=== PATIENT | male | born 1950 | race African-American/Black ===

== ENCOUNTER 2017-01-23 12:44 | Emergency (ER) | payer MEDICARE ==
[~2017-01-23] VITALS: Ht 185.4 cm; Wt 98.0 kg
[~2017-01-23 12:44] MED LIST: HYDR-3580 PO; MELO7.5 PO; VIAG25TA PO
[2017-01-23 12:46] VITALS: BP 140/79; PULSE 105; RESP 12; TEMP 98.4; O2SAT 98
--- NOTE | 2017-01-23 12:59 | PD ---
Physical Exam Date Seen by Provider: Jan 23, 2017 Time Seen by Provider: 12:58 Narrative 66 YOBM C/O CHRONIC R KNEE PAIN NO INJURY VITALS REVIEWED WAITING FOR BED PLACEMENT Data Data Last Documented VS Vital Signs Date Time Temp Pulse Resp B/P Pulse Ox O2 Delivery O2 Flow Rate FiO2 01/23/17 12:46 98.4 105 12 140/79 98 MDM Medical Record Reviewed: Yes Supervised Visit with LEX: Yes Villa Chiu Jan 23, 2017 12:59
[2017-01-23] MEDS ORDERED: OMEP20TA PO (13:32)
[2017-01-23] MEDS ORDERED: MOBI7.5T PO (13:32)
[2017-01-23] MEDS ORDERED: NAPR500T PO (13:48)
[2017-01-23] MEDS ORDERED: PRED-503 PO (13:48)
[2017-01-23] MEDS ORDERED: WHEEMIS3 (13:49)
[2017-01-23] MEDS ORDERED: MISC-274 (13:50)
--- NOTE | 2017-01-23 13:50 | PD ---
HPI Chief Complaint: Injury Time Seen by Provider: 13:46 Travel History International Travel<30 days: No Contact w/Intl Traveler<30days: No Traveled to known affect area: No History of Present Illness HPI 66-year-old male presents emergency Department with complaint of right knee pain. Has history of chronic right knee pain and says he needs a total knee replacement. Pain is exacerbated on Sunday. He denies injury or strain. Dr. Vasquez is his orthopedic surgeon and he has been trying to set up surgery for the last year. Denies paresthesias, loss of sensation, decreased range of motion, decreased strength to the affected extremity. These came for support with ambulation. Pain is worse with ambulation, bending the knee. Has tried taking tramadol with no relief of pain. Denies fever, chills, nausea, vomiting. Dr. Fernandez is primary care provider. No known allergies. Denies significant past medical history. No other modifying factors or associated signs and symptoms. PFSH Social History Tobacco Use: No Allergies-Medications (Allergen,Severity, Reaction): Coded Allergies: No Known Allergies (Unverified , 01/23/17) Reported Meds & Prescriptions Reported Meds & Active Scripts Active Folding Walker/5" Wheels (Device) 1 Mis Mis 1 Ea .ROUTE DIRECTED Wheelchair (Device) 1 Mis Mis 1 Ea .ROUTE DIRECTED Naproxen 500 Mg Tab 500 Mg PO BID 7 Days Deltasone (Prednisone) 20 Mg Tab 40 Mg PO DAILY 5 Days Reported Omeprazole 20 Mg Tab 20 Mg PO DAILY Mobic (Meloxicam) 7.5 Mg Tab 7.5 Mg PO DAILY PRN Review of Systems Except as stated in HPI: all other systems reviewed are Neg Physical Exam Narrative GENERAL: Well-nourished, well-developed male patient, in no acute distress; afebrile, nontoxic-appearing SKIN: Warm and dry. HEAD: Atraumatic. Normocephalic. EYES: Pupils equal and round. No scleral icterus. No injection or drainage. ENT: Mucosa pink and moist. Airway patent. NECK: Trachea midline. CARDIOVASCULAR: Regular rate. RESPIRATORY: No accessory muscle use. GASTROINTESTINAL: Flat. MUSCULOSKELETAL: Right knee is nonedematous, nonerythematous, and without ecchymosis; with full range of motion to flexion to 90; joint is stable with negative drawer test; no tenderness elicited on palpation to the anterior, medial, lateral aspect. Right lower extremity is supple and non-tense with 2+ pedal pulses and sensory intact and without erythema or edema. No obvious deformity. NEUROLOGICAL: Awake and alert. Oriented 3. No obvious cranial nerve deficits. Motor grossly within normal limits. Normal speech. PSYCHIATRIC: Appropriate mood and affect; insight and judgment normal. Data Data Last Documented VS Vital Signs Date Time Temp Pulse Resp B/P Pulse Ox O2 Delivery O2 Flow Rate FiO2 01/23/17 12:46 98.4 105 12 140/79 98 Orders Crutches (01/23/17 13:46) MDM Medical Decision Making Medical Screen Exam Complete: Yes Emergency Medical Condition: Yes Medical Record Reviewed: Yes Differential Diagnosis Arthritis, bursitis, knee pain Narrative Course 66-year-old male with chronic knee pain with acute exacerbation since Sunday. Denies injury, fall, strain. Right lower extremity supple and nontender 2+ pedal pulses and sensory intact without erythema or edema. Heart rate recheck on physical exam at approximately 90 bpm. Patient says he sees Dr. Vasquez and is supposed to be having a right total knee replacement. He has history of left total knee replacement. I do not suspect fracture, dislocation and feel imaging is not necessary at this time. I did offer to do an x-ray and the patient declined at this time. The patient has a cane for support. He is requesting one crutch for support. Crutches provided for support. Naproxen, Deltasone, a wheelchair, and walker prescribed for home. Instructed patient to follow up with Dr. Vasquez. Patient verbalizes understanding and agreement with treatment plan. Patient is medically cleared and stable for discharge. Discussed reasons to return to the emergency department. Instructed patient to follow up with primary care provider. Patient agrees with treatment plan. The patients vital signs are stable and the patient is stable for outpatient follow- up and treatment. Patient discharged home, stable and in no acute distress. Diagnosis Primary Impression: Right knee pain Qualified Code: M25.561 - Right knee pain, unspecified chronicity Referrals: Orthopaedic Surgeon Primary Care Physician Patient Instructions: Crutch Instructions (ED), General Instructions, Knee Pain (ED) Additional Instructions: Tylenol or ibuprofen as needed and as directed to reduce pain and inflammation Rest, ice, compress, and elevate extremity to decrease pain and inflammation Knee Brace for support Crutches, walker, cane, wheelchair for support Avoid aggravating activity; increase activity as tolerated Follow-up with primary care provider Return to the emergency department immediately with worsening symptoms Med/Other Pt SpecificInfo: Prescription(s) given Scripts Folding Walker/5" Wheels 1 Mis Mis #1 Ea .route As Directed Prov:Xochitl Stewart 01/23/17 Wheelchair 1 Mis Mis #1 EA .ROUTE DIRECTED Ref 0 Prov:Xochitl Stewart 01/23/17 Naproxen 500 Mg [id number] Mg PO BID 7 Days Ref 0 Prov:Xochitl Stewart 01/23/17 Prednisone (Deltasone)20 Mg Tab40 Mg PO DAILY 5 Days Ref 0 Prov:Xochitl Stewart 01/23/17 Disposition: 01 DISCHARGE HOME Condition: Stable Xochitl Stewart Jan 23, 2017 13:50
== END 2017-01-23 14:10 | disposition home or self-care (01) ==
LOC: NETRI 12:44
DX: M25.561 Pain in right knee (principal)
CPT/HCPCS: 99283; E0113; L1830

== ENCOUNTER 2017-06-24 07:41 | Observation (INO) | payer MEDICARE ==
[~2017-06-24 07:41] MED LIST changes: -HYDR-3580 PO; -MELO7.5 PO; +MISC-274; +MOBI7.5T PO; +NAPR500T PO; +OMEP20TA PO; +PRED-503 PO; -VIAG25TA PO; +WHEEMIS3
[2017-06-24 07:44] VITALS: BP 171/97; PULSE 98; RESP 16; TEMP 98.8; O2SAT 100
[2017-06-24 07:53] VITALS: BP 133/77; PULSE 92; O2SAT 100
[2017-06-24] MEDS ORDERED: PIPERACIL-TAZO 4.5 GM PREMIX 100 ML IV STA (07:59)
[2017-06-24] MEDS ORDERED: VANCOMYCIN INJ 1,000 MG in SODIUM CHLOR 0.9% 250 ML INJ 250 ML IV STA (07:59)
[2017-06-24 08:10] VITALS: PULSE 94; O2SAT 99
--- NOTE | 2017-06-24 08:41 | PD ---
HPI Chief Complaint: Skin Problem Time Seen by Provider: 07:54 Travel History International Travel<30 days: No Contact w/Intl Traveler<30days: No Traveled to known affect area: No History of Present Illness HPI [facility] WOUND GETTING WORSE, HE HAS NOTED ALSO LLE SWELLING WORSENING OVER PAST 2 WEEKS WELL, SOME DRAINAGE FROM WOUND PFSH Past Medical History Medical History: Denies Significant Hx Past Surgical History Joint Replacement: Yes (lt total knee) Social History Alcohol Use: Yes (beer occu) Tobacco Use: No (quit 7 yrs ago) Allergies-Medications (Allergen,Severity, Reaction): Coded Allergies: No Known Allergies (Unverified , 01/23/17) Reported Meds & Prescriptions Reported Meds & Active Scripts Active Folding Walker/5" Wheels (Device) 1 Mis Mis 1 Ea .ROUTE DIRECTED Wheelchair (Device) 1 Mis Mis 1 Ea .ROUTE DIRECTED Reported Omeprazole 20 Mg Tab 20 Mg PO DAILY Review of Systems Except as stated in HPI: all other systems reviewed are Neg Skin: Positive Lesions Physical Exam Narrative GENERAL: SKIN: Warm and dry. HEAD: Atraumatic. Normocephalic. EYES: Pupils equal and round. No scleral icterus. No injection or drainage. ENT: No nasal bleeding or discharge. Mucous membranes pink and moist. NECK: Trachea midline. No JVD. CARDIOVASCULAR: Regular rate and rhythm. RESPIRATORY: No accessory muscle use. Clear to auscultation. Breath sounds equal bilaterally. GASTROINTESTINAL: Abdomen soft, non-tender, nondistended. Hepatic and splenic margins not palpable. MUSCULOSKELETAL: Extremities without clubbing, cyanosis, or edema. No obvious deformities. ....LEFT LE EDEMA 2+ NOT PRESENT ON RLE, LLE ALSO HAS AN 8CM PRESSURE ULCER TYPE OF WOUND W/O DRAINAGE, WARM TO TOUCH, NEUROLOGICAL: Awake and alert. No obvious cranial nerve deficits. Motor grossly within normal limits. Five out of 5 muscle strength in the arms and legs. Normal speech. PSYCHIATRIC: Appropriate mood and affect; insight and judgment normal. Data Data Last Documented VS Vital Signs Date Time Temp Pulse Resp B/P (MAP) Pulse Ox O2 Delivery O2 Flow Rate FiO2 06/24/17 09:37 18 06/24/17 08:10 94 99 Room Air 06/24/17 07:44 98.8 Orders Orders Complete Blood Count With Diff (06/24/17 07:59) Comprehensive Metabolic Panel (06/24/17 07:59) Blood Culture (06/24/17 07:59) Lipase (06/24/17 07:59) Wound Culture And Gram Stain (06/24/17 07:59) Iv Access Insert/Monitor (06/24/17 07:59) Ecg Monitoring (06/24/17 07:59) Oximetry (06/24/17 07:59) Us Leg Venous Doppler (06/24/17 07:59) Piperacil-Tazo 4.5 Gm Premix (Zosyn 4.5 (06/24/17 07:59) Vancomycin Inj (Vancomycin Inj) (06/24/17 07:59) Morphine Inj (Morphine Inj) (06/24/17 09:15) Admit Order (Ed Use Only) (06/24/17 12:00) Labs Laboratory Tests Test 06/24/17 08:05 White Blood Count 5.8 TH/MM3 Red Blood Count 5.31 MIL/MM3 Hemoglobin 13.8 GM/DL Hematocrit 41.1 % Mean Corpuscular Volume 77.4 FL Mean Corpuscular Hemoglobin 26.1 PG Mean Corpuscular Hemoglobin Concent 33.6 % Red Cell Distribution Width 14.7 % Platelet Count 247 TH/MM3 Mean Platelet Volume 8.3 FL Neutrophils (%) (Auto) 53.1 % Lymphocytes (%) (Auto) 29.9 % Monocytes (%) (Auto) 13.1 % Eosinophils (%) (Auto) 2.6 % Basophils (%) (Auto) 1.3 % Neutrophils # (Auto) 3.1 TH/MM3 Lymphocytes # (Auto) 1.7 TH/MM3 Monocytes # (Auto) 0.8 TH/MM3 Eosinophils # (Auto) 0.1 TH/MM3 Basophils # (Auto) 0.1 TH/MM3 CBC Comment DIFF FINAL Differential Comment Blood Urea Nitrogen 13 MG/DL Creatinine 1.43 MG/DL Random Glucose 100 MG/DL Total Protein 8.1 GM/DL Albumin 3.6 GM/DL Calcium Level 9.1 MG/DL Alkaline Phosphatase 87 U/L Aspartate Amino Transf (AST/SGOT) 18 U/L Alanine Aminotransferase (ALT/SGPT) 24 U/L Total Bilirubin 0.4 MG/DL Sodium Level 141 MEQ/L Potassium Level 3.7 MEQ/L Chloride Level 104 MEQ/L Carbon Dioxide Level 28.0 MEQ/L Anion Gap 9 MEQ/L Estimat Glomerular Filtration Rate 60 ML/MIN Lipase 164 U/L MDM Medical Decision Making Medical Screen Exam Complete: Yes Emergency Medical Condition: Yes Medical Record Reviewed: Yes Differential Diagnosis CELLULITIS V DVT V PERIPHERAL EDEMA UNILATERAL V BAKERS CYST Narrative Course ULTRS DID NOT REVEAL DVT, LEG FINDINGS TROUBLESOME FOR CELLULITIS, THIS WAS EXPLAINED TO PATIENT IN DETAIL, INCLUDING RISK OF OSTEOMYELITIS WELL UNTREATED CELLULITIS WHICH CAN LEAD TO AMPUTATION. PATIENT UNDERSTOOD AND ORIGINALLY AGREED TO ADMISSION FOR OBS STATUS. [facility] CALLED TO ADMIT Diagnosis Primary Impression: LLE CELLULITIS Admitting Information Admitting Physician Requests: Observation Smith Cardenas MD Jun 24, 2017 08:41
[2017-06-24 08:45] LABS: AUTOMATED NEUTROPHIL # 3.1 TH/MM3 (1.8-7.7); BASOPHIL # 0.1 TH/MM3 (0-0.2); BASOPHIL % 1.3 % (0.0-2.0); EOSINOPHIL # 0.1 TH/MM3 (0-0.4); EOSINOPHIL % 2.6 % (0.0-4.0); HEMATOCRIT 41.1 % (39.0-51.0); HEMO FLAGS DIFF FINAL; LYMPH % 29.9 % (9.0-44.0); LYMPHOCYTE # 1.7 TH/MM3 (1.0-4.8); MEAN CELL VOLUME 77.4 FL (80.0-100.0); MEAN CORPUSCULAR HEMOGLOBIN 26.1 PG (27.0-34.0); MEAN CORPUSCULAR HGB CONC 33.6 % (32.0-36.0); MONO % 13.1 % (0.0-8.0); NEUT % 53.1 % (16.0-70.0); PLATELET COUNT 247 TH/MM3 (150-450); RED BLOOD COUNT 5.31 MIL/MM3 (4.50-5.90); RED CELL DISTRIBUTION WIDTH 14.7 % (11.6-17.2); WHITE BLOOD COUNT 5.8 TH/MM3 (4.0-11.0)
[2017-06-24 08:58] LABS: ANION GAP 9 MEQ/L (5-15); AST (GOT) 18 U/L (15-37); BLOOD UREA NITROGEN 13 MG/DL (7-18); CHLORIDE 104 MEQ/L (98-107); GLOMERULAR FILTRATION RATE 60 ML/MIN (>89); POTASSIUM 3.7 MEQ/L (3.5-5.1); SODIUM (NA) 141 MEQ/L (136-145)
[2017-06-24 09:01] LABS: ALKALINE PHOSPHATASE 87 U/L (45-117); ALT (GPT) 24 U/L (12-78); TOTAL BILIRUBIN ADULT 0.4 MG/DL (0.2-1.0)
[2017-06-24] MEDS ORDERED: MORPHINE SULFATE 4 MG/ML INJ IV PUSH ONE (09:15)
--- NOTE | 2017-06-24 09:25 | RADRPT ---
EXAM DATE/TIME: 06/24/2017 08:58 [place] COMPARISON: No previous studies available for comparison. INDICATIONS : Left leg pain. MEDICAL HISTORY : Alcohol use. Tobacco use. SURGICAL HISTORY : Left knee replacement. ENCOUNTER: Initial ACUITY: 1 month PAIN SCORE: 2/10 LOCATION: Left leg. TECHNIQUE: Venous ultrasound of the leg was performed from the inguinal ligament to the proximal calf. Real-beth e, color Doppler and spectral tracing, compression and augmentation techniques were used. FINDINGS: There is normal compressibility of the deep venous system from the inguinal region to the proximal ca lf. No echogenic clot is seen in the lumen of the common femoral, femoral, popliteal, and posterior tibial veins. There is a normal response of the venous system to proximal and distal augmentation an d respiration. CONCLUSION: Normal examination. Tae Bang MD on June 24, 2017 at 9:23 Board Certified Radiologist. This report was verified electronically.
[2017-06-24 12:08] VITALS: BP 144/94; PULSE 92; RESP 18; O2SAT 99
--- NOTE | 2017-06-24 12:14 | HHI.HP ---
[facility] Service Family Medicine Primary Care Physician [facility] Admission Diagnosis LLE CELLULITIS Diagnoses: International Travel<30 Days: No Contact w/Intl Traveler<30days: No Known Affected Area: No Past Family Social History Allergies: Coded Allergies: No Known Allergies (Unverified , 01/23/17) Physical Exam Vital Signs Vital Signs Date Time Temp Pulse Resp B/P (MAP) Pulse Ox O2 Delivery O2 Flow Rate FiO2 06/24/17 12:08 92 18 144/94 (111) 99 Room Air 06/24/17 09:37 18 06/24/17 08:10 94 99 Room Air 06/24/17 07:53 92 133/77 (95) 100 Room Air 06/24/17 07:44 98.8 98 16 171/97 (121) 100 Physical Exam GENERAL: This is a well-nourished, well-developed patient, in no apparent distress. SKIN: No rashes, ecchymoses or lesions. Cool and dry. HEAD: Atraumatic. Normocephalic. No temporal or scalp tenderness. EYES: Pupils equal round and reactive. Extraocular motions intact. No scleral icterus. No injection or drainage. ENT: Nose without bleeding, purulent drainage or septal hematoma. Throat without erythema, tonsillar hypertrophy or exudate. Uvula midline. Airway patent. NECK: Trachea midline. No JVD or lymphadenopathy. Supple, nontender, no meningeal signs. CARDIOVASCULAR: Regular rate and rhythm without murmurs, gallops, or rubs. RESPIRATORY: Clear to auscultation. Breath sounds equal bilaterally. No wheezes , rales, or rhonchi. GASTROINTESTINAL: Abdomen soft, non-tender, nondistended. No hepato-splenomegaly , or palpable masses. No guarding. MUSCULOSKELETAL: Extremities without clubbing, cyanosis, or edema. No joint tenderness, effusion, or edema noted. No calf tenderness. Negative Homans sign bilaterally. NEUROLOGICAL: Awake and alert. Cranial nerves II through XII intact. Motor and sensory grossly within normal limits. Five out of 5 muscle strength in all muscle groups. Normal speech. Laboratory Laboratory Tests Test 06/24/17 08:05 White Blood Count 5.8 Red Blood Count 5.31 Hemoglobin 13.8 Hematocrit 41.1 Mean Corpuscular Volume 77.4 Mean Corpuscular Hemoglobin 26.1 Mean Corpuscular Hemoglobin Concent 33.6 Red Cell Distribution Width 14.7 Platelet Count 247 Mean Platelet Volume 8.3 Neutrophils (%) (Auto) 53.1 Lymphocytes (%) (Auto) 29.9 Monocytes (%) (Auto) 13.1 Eosinophils (%) (Auto) 2.6 Basophils (%) (Auto) 1.3 Neutrophils # (Auto) 3.1 Lymphocytes # (Auto) 1.7 Monocytes # (Auto) 0.8 Eosinophils # (Auto) 0.1 Basophils # (Auto) 0.1 CBC Comment DIFF FINAL Differential Comment Blood Urea Nitrogen 13 Creatinine 1.43 Random Glucose 100 Total Protein 8.1 Albumin 3.6 Calcium Level 9.1 Alkaline Phosphatase 87 Aspartate Amino Transf (AST/SGOT) 18 Alanine Aminotransferase (ALT/SGPT) 24 Total Bilirubin 0.4 Sodium Level 141 Potassium Level 3.7 Chloride Level 104 Carbon Dioxide Level 28.0 Anion Gap 9 Estimat Glomerular Filtration Rate 60 Lipase 164 Date/Time Source Procedure Growth Status 06/24/17 08:40 Blood Peripheral Aerobic Blood Culture Pending Received 06/24/17 08:40 Blood Peripheral Anaerobic Blood Culture Pending Received 06/24/17 08:20 Wound Leg Gram Stain Pending Received 06/24/17 08:20 Wound Leg Wound Culture Pending Received Result Diagram: 06/24/17 0806/24/17804 Caprini VTE Risk Assessment Caprini Risk Assessment Model Point Value = 1 Point Value = 2 Point Value = 3 Point Value = 5 Age 41-60 Minor surgery BMI > 25 kg/m2 Swollen legs Varicose veins or History of unexplained or recurrent spontaneous Oral contraceptives or hormone replacement Sepsis (< 1 month) Serious lung disease, including pneumonia (< 1 month) Abnormal pulmonary function Acute myocardial infarction Congestive heart failure (< 1 month) History of inflammatory bowel disease Medical patient at bed rest Age 61-74 Arthroscopic surgery Major open surgery (> 45 min) Laparoscopic surgery (> 45 min) Malignancy Confined to bed (> 72 hours) Immobilizing plaster cast Central venous access Age >= 75 History of VTE Family history of VTE Factor V Leiden Prothrombin [id number] Lupus anticoagulant Anticardiolipin antibodies Elevated serum homocysteine Heparin-induced thrombocytopenia Other congenital or acquired thrombophilia Stroke (< 1 month) Elective arthroplasty Hip, pelvis, or leg fracture Acute spinal cord injury (< 1 month) Prophylaxis Regimen Total Risk Factor Score Risk Level Prophylaxis Regimen 0-1 Low Early ambulation 2 Moderate Order ONE of the following: *Sequential Compression Device (SCD) *Heparin 5000 units SQ BID 3-4 Higher Order ONE of the following medications: *Heparin 5000 units SQ TID *Enoxaparin/Lovenox 40 mg SQ daily (WT < 150 kg, CrCl > 30 mL/min) *Enoxaparin/Lovenox 30 mg SQ daily (WT < 150 kg, CrCl > 10-29 mL/min) *Enoxaparin/Lovenox 30 mg SQ BID (WT < 150 kg, CrCl > 30 mL/min) AND/OR *Sequential Compression Device (SCD) 5 or more Highest Order ONE of the following medications: *Heparin 5000 units SQ TID (Preferred with Epidurals) *Enoxaparin/Lovenox 40 mg SQ daily (WT < 150 kg, CrCl > 30 mL/min) *Enoxaparin/Lovenox 30 mg SQ daily (WT < 150 kg, CrCl > 10-29 mL/min) *Enoxaparin/Lovenox 30 mg SQ BID (WT < 150 kg, CrCl > 30 mL/min) AND *Sequential Compression Device (SCD) Cinthia Alarcon MD R2 Jun 24, 2017 12:14
[2017-06-24] MEDS ORDERED: SODIUM CHLORIDE 0.9% FLUSH 10 ML FLUSH IV FLUSH PRN (12:15)
--- NOTE | 2017-06-24 14:05 | PD.AMA ---
Against Medical Advice Note Discharge Disposition: Against Medical Advice Pt Condition on Discharge: Stable AMA Statement Patient Murray Olivier has decided to leave the hospital against medical advice. This patient has the capacity to refuse care and understands the risks of leaving, including permanent disability and/or , and has had an opportunity to ask questions about his condition. The patient has been informed that he may return for care at any time, and follow up has been arranged/ advised. Applies only to today 06/24/17: Pt stated that he has to leave the hospital to go take care of his dogs. He will return to the [facility] as soon as he arranges care for his dogs. We agreed to accept him back as a direct admit only if he returns to the hospital today 06/24/2017 Applies after 06/24/2017: The Family Resident team will accept this patient on resident admitting days in the future. Cinthia Alarcon MD R2 Jun 24, 2017 14:04
[2017-06-24] MEDS ORDERED: SODIUM CHLORIDE 0.9% FLUSH 10 ML FLUSH IV FLUSH SCH (21:00)
[2017-06-26] MEDS ORDERED: OMEP20TA PO (12:33)
[2017-06-26] MEDS ORDERED: BACT800T5 PO (12:33)
[2017-06-26] MEDS ORDERED: HYDR-3516 PO ×2 (12:57→12:59)
[2017-06-28] MEDS ORDERED: HYDR-3516 PO (10:01)
[2017-06-28] MEDS ORDERED: LISI-519 PO (10:01)
[2017-06-28] MEDS ORDERED: ASPI81CH CHEW (10:01)
[2017-06-28] MEDS ORDERED: MEDICAL COMPRES1 MIS (10:01)
[2017-07-18] MEDS ORDERED: [UNRECOGNIZED DRUG - SUPPLY] TOPICAL (15:34)
[2017-07-18] MEDS ORDERED: PERI8.6T PO (15:34)
[2017-07-18] MEDS ORDERED: HYDR-3516 PO (15:34)
[2017-08-01] MEDS ORDERED: LISI-519 PO (18:50)
== END 2017-06-24 13:55 | disposition left against medical advice (07) ==
LOC: NEPE 07:41 → NEDA 12:02
PROVIDERS: ADMIT Family Medicine; ATTEND Family Medicine
DX: L03.116 Cellulitis of left lower limb (principal); Z96.652 Presence of left artificial knee joint
CPT/HCPCS: 80053; 83690; 85025; 86403; 87040; 87070; 93971; 96365; 96366; 96372; 96374; 96375; 96376; 99285; G0378; J1644; J2270; J2543; J3370; J7030; J7050

== ENCOUNTER 2017-12-25 08:10 | Emergency (ER) | payer SELFPAY ==
[~2017-12-25] VITALS: Ht 185.4 cm; Wt 98.0 kg
[~2017-12-25 08:10] MED LIST changes: +ASPI-516 CHEW; +HYDR-3516 PO; +LISI-519 PO; +MEDICAL COMPRES1 MIS; -MOBI7.5T PO; -NAPR500T PO; -OMEP20TA PO; +OMEP20TA93 PO; +PERI8.6T PO; -PRED-503 PO; +[UNRECOGNIZED DRUG - SUPPLY] TOPICAL
[2017-12-25 08:13] VITALS: BP 146/72; PULSE 97; RESP 17; TEMP 98.3; O2SAT 100
--- NOTE | 2017-12-25 09:29 | PD ---
HPI Chief Complaint: Pain: Acute or Chronic Time Seen by Provider: 09:08 Travel History International Travel<30 days: No Contact w/Intl Traveler<30days: No Traveled to known affect area: No History of Present Illness HPI Patient comes to the emergency department complaining of left leg pain has been ongoing since having knee surgery in 2013. Patient reports that he has been taking medication prescribed by his pain management doctor that seems to help some. Pain is worse with palpation and walking. Patient reports he got concerned because yesterday he had his leg wrapped and when he unwrapped it the dressing had a foul smelling discharge to it. Patient reports he contacted his primary care doctor today and was told to come to the emergency department. Patient denies any fevers or new injury. Patient reports he has been compliant with everything he has been told to do with this. Describes pain as a burning throbbing pain throughout his left lower leg without radiation. PFSH Past Medical History Blood Disorders: No Cancer: No Cardiovascular Problems: No Chemotherapy: No Endocrine: No Gastrointestinal Disorders: No Genitourinary: No Immune Disorder: No Implanted Vascular Access Dvce: No Musculoskeletal: Yes (left knee) Neurologic: No Psychiatric: No Reproductive: No Respiratory: No Radiation Therapy: No Past Surgical History Joint Replacement: Yes (lt total knee) Other Surgery: Yes (Total knee, left) Social History Alcohol Use: Yes (beer occu) Tobacco Use: No (quit 7 yrs ago) Substance Use: No Allergies-Medications (Allergen,Severity, Reaction): Coded Allergies: No Known Allergies (Unverified Adverse Reaction, Unknown, 12/25/17) Reported Meds & Prescriptions Reported Meds & Active Scripts Active Clindamycin (Clindamycin HCl) 300 Mg Cap 300 Mg PO Q6H 10 Days Keflex (Cephalexin) 500 Mg Cap 500 Mg PO Q12H 10 Days Lisinopril 5 Mg Tab 5 Mg PO DAILY Hydrocodone-Acetaminophen 5-325 mg Tab 1 Tab PO Q6H PRN 10 Days Caroline-Colace (Sennosides-Docusate Sodium) 8.6-50 Mg Tab 2 Tab PO BID PRN Medical Legwear Elastic Knee High 1 Mis Mis Ea TOPICAL DIRECTED Medical Compression Elastic Stockings 1 Mis Mis Ea .ROUTE DIRECTED Aspirin 81 Mg Chew 81 Mg CHEW DAILY Omeprazole 20 Mg Tab 20 Mg PO DAILY Folding Walker/5" Wheels (Device) 1 Mis Mis 1 Ea .ROUTE DIRECTED Wheelchair (Device) 1 Mis Mis 1 Ea .ROUTE DIRECTED Review of Systems Except as stated in HPI: all other systems reviewed are Neg Physical Exam Narrative GENERAL: Well-developed, overly nourished, in no acute distress, and non-ill appearing. SKIN: Dry flaking skin noted left lower extremity. It is afebrile nonerythematous, without crepitus, and without drainage. HEAD: Atraumatic. Normocephalic. EYES: Pupils equal and round. EOMI. No scleral icterus. No injection or drainage. ENT: No nasal bleeding or discharge. Mucous membranes pink and moist. NECK: Trachea midline. Supple. No nuclear rigidity. CARDIOVASCULAR: Dorsal pulses 2+ intact and equal bilaterally. Capillary refill is equal bilateral lower extremities. RESPIRATORY: No accessory muscle use. No respiratory distress. MUSCULOSKELETAL: No obvious deformities. No clubbing. No cyanosis. Trace edema bilateral lower extremities. Full range of motion. NEUROLOGICAL: Awake and alert. No obvious cranial nerve deficits. Motor grossly within normal limits. Normal speech. PSYCHIATRIC: Appropriate mood and affect; insight and judgment normal. Data Data Last Documented VS Vital Signs Date Time Temp Pulse Resp B/P (MAP) Pulse Ox O2 Delivery O2 Flow Rate FiO2 12/25/17 08:13 98.3 97 17 146/72 (96) 100 Orders Orders Ed Discharge Order (12/25/17 09:35) [facility] Medical Decision Making Medical Screen Exam Complete: Yes Emergency Medical Condition: Yes Differential Diagnosis Chronic leg pain, cellulitis, vasculitis, wound infection Narrative Course No obvious signs of cellulitis or other infectious process but will place patient on antibiotics prophylactically secondary to reported foul-smelling discharge and history of infected wound to the leg. Patient in no obvious distress upon re-evaluation. Patient was asked if they wanted to speak to my attending, which the patient did not wish to do at this time. Any questions/ concerns in reference to patient diagnosis/condition discussed and clarified prior to patient's discharge. Reinforced sheer importance of close follow up with patient's primary physician or primary care clinic. Instructed patient to return to ED immediately, if symptoms return/worsen. Patient showed understanding of above instructions. Further instructions and recommendations were detailed in discharge paperwork. Patient ambulated without difficulty out of ED at discharge. Diagnosis Primary Impression: Leg pain, left Referrals: Js Lynn MD Patient Instructions: General Instructions, Leg Pain (ED) Additional Instructions: Follow-up with your primary care physician and/or vascular surgeon in this week for reevaluation. Take all medication as prescribed. Return to the emergency department if symptoms get worse. Med/Other Pt SpecificInfo: Prescription(s) given Scripts Clindamycin (Clindamycin) 300 Mg Cap 300 MG PO Q6H for Infection for 10 Days, #40 CAP 0 Refills Prov: Theo Valles MD 12/25/17 Cephalexin (Keflex) 500 Mg Cap 500 MG PO Q12H for Infection for 10 Days, #20 CAP 0 Refills Prov: Theo Valles MD 12/25/17 Disposition: 01 DISCHARGE HOME Condition: Stable Chauncey Sol Dec 25, 2017 09:29
[2017-12-25] MEDS ORDERED: CLIN300C5 PO (09:35)
[2017-12-25] MEDS ORDERED: CEPH-460 PO (09:35)
== END 2017-12-25 09:49 | disposition home or self-care (01) ==
LOC: NEPK 08:10
DX: M79.605 Pain in left leg (principal)
CPT/HCPCS: 99283